=== PATIENT | female | born 1960 | race African-American/Black ===

== ENCOUNTER → 2024-05-15 06:53 | Outpatient (REF) | payer OTHER, SELFPAY | LOC: HWWDC 06:53 | PROVIDERS: ATTENDING PHYSICIAN Physician Assistant | DX: Z12.31 Encounter for screening mammogram for malignant neoplasm of breast (principal) | CPT/HCPCS: 77063; 77067 ==

== ENCOUNTER → 2025-07-25 07:46 | Outpatient (REF) | payer MEDICARE, SELFPAY | LOC: HWWDC 07:46 | PROVIDERS: ATTENDING PHYSICIAN Physician Assistant | DX: Z12.31 Encounter for screening mammogram for malignant neoplasm of breast (principal) | CPT/HCPCS: 77063; 77067 ==